=== PATIENT | male | born 1995 | race Caucasian/White ===

== ENCOUNTER 2016-06-05 23:19 | Emergency (ER) | payer BC ==
[~2016-06-05] VITALS: Ht 188 cm; Wt 74.8 kg
[2016-06-05 23:41] LABS: HEMATOCRIT 47.8 % (42.0-52.0); HEMOGLOBIN 16.1 gm/dL (14.0-18.0); MCH 30.3 pg (26.0-34.0); MCHC 33.6 % (28.0-37.0); MCV 90.3 fL (80.0-100.0); RBC 5.3 mil/uL (4.50-6.00); RDW 12.9 % (10.5-14.5); WBC 20.4 thou/uL (4.0-11.0)
[2016-06-05 23:50] LABS: CALCIUM 9.6 mg/dL (8.5-10.1); CREATININE 1.2 mg/dL (0.6-1.3); POTASSIUM 3.3 mmol/L (3.5-5.1)
[2016-06-05 23:57] LABS: ALBUMIN 4.4 g/dL (3.4-5.0); DIRECT BILIRUBIN 0.3 mg/dL (<0.1-0.3); TOTAL BILIRUBIN 1.3 mg/dL (<0.1-1.0); TOTAL PROTEIN 7.7 g/dL (6.4-8.2)
[2016-06-06] MEDS ORDERED: ZOFRAN ODT4 MG PO (00:45)
[2016-06-06 01:47] VITALS: BP 111/54
== END 2016-06-06 01:48 | disposition home or self-care (01) ==
LOC: ER 23:19
PROVIDERS: Emergency Medicine
DX: R11.2 Nausea with vomiting, unspecified (principal)